=== PATIENT | female | born 1985 | race Two or more races ===

== ENCOUNTER 2017-05-07 16:21 | Emergency (ER) | payer OTHER ==
--- NOTE | 2017-05-07 16:27 | UC ---
HPI Febrile Illness - HPI Summary HPI Summary: 31 year old presents with complains of sore throat x 3 days. - History of Current Complaint Time Seen by Provider: 05/07/17 16:27 - Allergy/Home Medications Allergies/Adverse Reactions: Allergies Allergy/AdvReac Type Severity Reaction Status Date / Time No Known Allergies Allergy Verified 05/07/17 16:34 Home Medications: Home Medications Ibuprofen TAB* [Advil TAB*] 200 mg PO QID PRN 05/07/17 [History Confirmed ] Review of Systems Constitutional: Negative Skin: Negative Eyes: Negative ENT: Sore Throat, Nasal Discharge Respiratory: Negative Cardiovascular: Negative Gastrointestinal: Negative Genitourinary: Negative Motor: Negative Neurovascular: Negative Musculoskeletal: Negative Neurological: Negative Psychological: Negative All Other Systems Reviewed And Are Negative: Yes Physical Exam Triage Information Reviewed: Yes Eye Exam: Normal ENT: Positive: Pharyngeal erythema, Nasal drainage Dental Exam: Normal Neck exam: Normal Neck: Positive: 1 Respiratory Exam: Normal Cardiovascular Exam: Normal Abdominal Exam: Normal Musculoskeletal Exam: Normal Neurological Exam: Normal Psychological Exam: Normal Skin Exam: Normal Course/Dx - Diagnoses Clinic Provider Diagnoses: ALLERGIC RHINNITIS Discharge - Discharge Plan Condition: Stable Disposition: HOME Prescriptions: Amoxicillin CAP* [Amoxicillin 500 MG CAP*] 500 mg PO TID #30 cap LoraTADine TAB(NF) [Claritin 10 MG TAB(NF)] 10 mg PO DAILY #30 tab Magic M W2 [place]/Maal/Nyst/Lido* 15 ml SWISH SPIT QID #120 ml Patient Education Materials: Fever in Adults (ED) Referrals: No Primary Care Phys,NOPCP [Primary Care Provider] -
== END 2017-05-07 17:10 | disposition home or self-care (01) ==
LOC: UCEAST 16:21
DX: J30.9 Allergic rhinitis, unspecified (principal)
CPT/HCPCS: 87651; 99202; G0463

== ENCOUNTER 2017-10-13 20:53 | Emergency (ER) | payer OTHER ==
[2017-10-13 21:01] VITALS: BP 118/67
--- NOTE | 2017-10-13 21:25 | RAD ---
HISTORY: Right wrist injury COMPARISONS: None VIEWS: 3, Frontal, lateral, and oblique views of the right breast FINDINGS: BONE DENSITY: Normal. BONES: There is no displaced fracture. JOINTS: There is no arthropathy. ALIGNMENT: There is no dislocation. SOFT TISSUES: Unremarkable. OTHER FINDINGS: None. IMPRESSION: NO ACUTE OSSEOUS INJURY. IF SYMPTOMS PERSIST, RECOMMEND REPEAT IMAGING.
--- NOTE | 2017-10-13 22:14 | UC ---
Hand/Wrist HPI - HPI Summary HPI Summary: 32 yo female splint and fell on outstretched right arm she is right handed c/o right wrist pain - History Of Current Complaint Chief Complaint: UCUpperExtremity Stated Complaint: ARM INJURY Time Seen by Provider: 10/13/17 21:08 Hx Obtained From: Patient Hx Last Menstrual Period: 3 wks ago Onset/Duration: Sudden Onset, Lasting Hours Severity Initially: Moderate Severity Currently: Moderate Pain Intensity: 4 - worse with movement Pain Scale Used: 0-10 Numeric Character Of Pain: Sharp, Aching, Throbbing Aggravating Factor(s): Movement Alleviating Factor(s): Rest, Ice Associated Signs And Symptoms: Positive: Swelling Related History: Dominant Hand Right - Allergies/Home Medications Allergies/Adverse Reactions: Allergies Allergy/AdvReac Type Severity Reaction Status Date / Time No Known Allergies Allergy Verified 10/13/17 21:01 Home Medications: Home Medications NK [No Home Medications Reported] 10/13/17 [History Confirmed 10/13/17] PMH/Surg Hx/FS Hx/Imm Hx Previously Healthy: Yes - Surgical History Surgical History: None - Family History Known Family History: Positive: Hypertension - Social History Alcohol Use: None Substance Use Type: None Smoking Status (MU): Never Smoked Tobacco Review of Systems Constitutional: Negative Skin: Negative Eyes: Negative ENT: Negative Respiratory: Negative Cardiovascular: Negative Gastrointestinal: Negative Genitourinary: Negative Motor: Negative Neurovascular: Negative Musculoskeletal: Arthralgia Neurological: Negative Psychological: Negative Is Patient Immunocompromised?: No All Other Systems Reviewed And Are Negative: Yes Physical Exam Triage Information Reviewed: Yes Appearance: Well-Appearing, No Pain Distress, Well-Nourished Vital Signs: Initial Vital Signs Temp 97.1 F 10/13/17 20:58 Pulse 80 10/13/17 20:58 Resp 12 10/13/17 20:58 BP 118/67 10/13/17 20:58 Pulse Ox 100 10/13/17 20:58 Eyes: Positive: Conjunctiva Clear ENT: Positive: Hearing grossly normal. Negative: Nasal congestion, Nasal drainage, Trismus, Muffled voice, Hoarse voice Neck: Positive: Supple Respiratory: Positive: Lungs clear, Normal breath sounds, No respiratory distress, No accessory muscle use Cardiovascular: Positive: RRR, No Murmur. Negative: Tachycardia Musculoskeletal: Positive: Other: - see image Neurological: Positive: Alert Psychological Exam: Normal Skin Exam: Normal Hand/Wrist Course/Dx - Course Course Of Treatment: advised of (-) xr but warned re occult fxs/ligament injury/ cartilage injury and need for follow up for failure to improve - Differential Dx/Diagnosis Provider Diagnoses: right wrist sprain Discharge - Discharge Plan Condition: Stable Disposition: HOME Patient Education Materials: Wrist Sprain (ED) Referrals: [facility] [Outside] (call Monday and make a follow up appt (unless you are markedly improved)) Additional Instructions: ice twice daily advil or aleve Images Hands: 1 - swollen/tender 2 - no snuff box tenderness 3 - painful ROM, distal n/v intace
== END 2017-10-13 22:40 | disposition home or self-care (01) ==
LOC: UCEAST 20:53
DX: S63.501A Unspecified sprain of right wrist, initial encounter (principal); W19.XXXA Unspecified fall, initial encounter; Y93.9 Activity, unspecified; Y92.9 Unspecified place or not applicable; Y99.9 Unspecified external cause status
CPT/HCPCS: 99212; G0463

== ENCOUNTER 2023-10-26 19:15 | Inpatient (IN) ==
[2023-10-26] MEDS ORDERED: Lactated Ringers 1000 ml BAG 1,000 ML IV ONE (20:30)
[2023-10-26] MEDS ORDERED: Lidocaine 1% VIAL 10 MG/ML 30 ML VIAL INJ PRN (20:30)
[2023-10-26] MEDS ORDERED: Buffered Lidocaine 1% SYRIN 1 ml INTRADERM ONE (20:30)
[2023-10-26] MEDS ORDERED: Lactated Ringers 1000 ml BAG 1,000 ML IV SCH (21:00)
[2023-10-27] MEDS ORDERED: miSOPROStol 100 mcg TAB PO ONE ×3 (07:52→16:00)
[2023-10-27] MEDS ORDERED: Glycerin ADULT 2.4 gm SUPP PR PRN (20:01)
[2023-10-27] MEDS ORDERED: Oxytocin 10 UNITS/ML 1 ML VIAL IM ONE (20:01)
[2023-10-27] MEDS: Witch Hazel PAD JAR TOPICAL PRN (20:13)
[2023-10-27] MEDS: Dibucaine 1% OINT 28.35 GM TUBE PR PRN (20:13)
[2023-10-27] MEDS ORDERED: Lactated Ringers 1000 ml BAG 1,000 ML IV SCH (21:00)
[2023-10-28 08:42] LABS: ABS Lymphocytes 1.8 10^3/uL (1.0-4.8); ABS Monocytes 0.6 10^3/uL (0.0-0.9); ABS Neutrophils 7.9 10^3/uL (1.5-7.6); ABS Nucleated RBC 0.03 10^3/ul; Eosinophil % 0.3 %; Hematocrit 29.6 % (35-45); Hemoglobin 10.1 g/dL (11.5-14.3); Lymphocyte % 17.1 %; Mean Corpuscular Hemoglobin 31.1 pg (27-33); Mean Corpuscular Hgb Conc 34.1 g/dL (31-36); Mean Corpuscular Volume 91.3 fL (80-97); Nucleated Red Blood Cells % 0.2 %/100WBC (0.0-0.8); Platelet Count 122 10^3/uL (150-450); Red Blood Count 3.25 10^6/uL (3.63-4.92); Red Cell Distribution Width 13.7 % (12-17); White Blood Count 10.3 10^3/uL (3.8-11.8)
[2023-10-28] MEDS: Dibucaine 1% OINT 28.35 GM TUBE PR PRN (15:41)
[2023-10-29 08:04] VITALS: BP 98/54
[2023-10-29] MEDS: Witch Hazel PAD JAR TOPICAL PRN (10:44)
[2023-10-29] MEDS: Dibucaine 1% OINT 28.35 GM TUBE PR PRN (10:44)
== END 2023-10-29 13:03 | disposition home or self-care (01) | DRG 560 ==
LOC: MCHOBOUT 19:15 → MCHOB 19:56
PROVIDERS: ADMIT Registered Nurse; ATTEND Midwife